=== PATIENT | female | born 1955 | race Caucasian/White ===

== ENCOUNTER 2022-12-18 12:29 | Outpatient (CLI) | payer MEDICARE, SELFPAY ==
[2022-12-18 14:43] LABS: Basophils Absolute Auto 0.04 K/uL (0.00-0.30); Basophils Percent Auto 0.5 % (0.0-3.0); Eosinophils Absolute Auto 0.49 K/uL (0.00-0.50); Eosinophils Percent Auto 6.4 % (0.0-7.0); Hematocrit 45.7 % (33.0-51.0); Hemoglobin* 14.4 gm/dL (12.0-16.0); Lymphocytes Percent Auto 32.9 % (20-44); Mean Corpuscular HGB Conc 32 gm/dL (32-36); Mean Corpuscular Hemoglobin 29 pg (26-34); Mean Corpuscular Volume 91 fL (80-100); Monocytes Percent Auto 8.5 % (0.0-11.0); Neutrophils Absolute Auto 3.93 K/uL (1.7-7.0); Neutrophils Percent Auto 51.7 % (42.0-72.0); Platelet Count* 206 K/uL (140-440); RDW Coefficient of Variation % 12.6 % (11.5-15.5); Red Blood Count 5.02 m/uL (4.00-5.20); White Blood Count* 7.61 K/uL (4.50-11.00)
[2022-12-18 14:53] LABS: Slide Review Reflex No
[2022-12-18 15:17] LABS: Albumin* 3.9 g/dL (3.3-5.0); Chloride* 102 mmol/L (96-114); Potassium* 3.9 mmol/L (3.6-5.1); Sodium* 142 mmol/L (135-149)
[2022-12-18 15:19] LABS: Anion Gap 7 mEq/L (7-15); Bilirubin Total* 0.5 mg/dL (0.1-1.5); Carbon Dioxide* 33 mmol/L (20-32); Creatinine* 0.7 mg/dL (0.5-1.5); Estimated Glomerular Filt Rate 95 ml/min
[2022-12-18 15:20] LABS: Alanine Aminotransferase* 17 U/L (4-35); Alkaline Phosphatase* 114 U/L (40-150); Aspartate Amino Transferase* 26 U/L (12-35); Blood Urea Nitrogen* 13 mg/dL (7-30); Calcium* 9.7 mg/dL (8.4-10.6); Glucose* 129 mg/dL (60-115); Total Protein* 7.4 g/dL (6.0-8.3)
[2022-12-18 16:09] LABS: Vitamin B12* 350 pg/mL (243-894)
== END 2022-12-18 12:30 | disposition home or self-care (01) ==
PROVIDERS: PCP Family Medicine; Visit Provider Family Medicine
DX: E11.9 Type 2 diabetes mellitus without complications (principal); K21.9 Gastro-esophageal reflux disease without esophagitis; R53.83 Other fatigue; E78.5 Hyperlipidemia, unspecified
CPT/HCPCS: 80053; 82607; 85025

== ENCOUNTER 2023-07-15 12:57 | Outpatient (CLI) | payer MEDICARE, SELFPAY ==
--- OUTSIDE RECORDS SUMMARY | 2023-07-15 12:59 | XMS_ITS | Clinical Summary ---
Author Name Unknown Organization [facility] Address [address] [place] [address] Care Team Providers Care Retail Business Analyst Name Role Phone Unavailable Primary Care Provider Unavailabl e Source Comments Patient records contain information from all sites at [facility]. For routine questions regarding patient records, call [phone] during business hours, M-F 8:00 AM - 5:00 PM Central Time. Record requests for emergency care only can be directed to [phone] at any time.[facility] Allergies Active Allergy Reactions Criticality Noted Date Comments House Dust Other (see comments) 08/13/2020 Nasal congestion Milk Headache 08/13/2020 Mold Other (see comments) 08/13/2020 Nasal congestion Onion Headache 08/13/2020 Pollen Extracts Other (see comments) 08/13/2020 Nasal congestion Smallpox Vaccines Other (see comments) 08/14/19 21 Medications Medication Sig Dispensed Refills Start Date End Date Status montelukast (SINGULAIR) 10 mg tablet Take 10 mg by mouth every morning. 0 Active omeprazole (PriLOSEC) [address] capsule Take 20 mg by mouth 2 (two) times a day. 0 Active morphine (MS CONTIN) 30 mg ER tablet 30 mg 3 (three) times a day. 0 08/07/2020 Active albuterol 90 mcg/actuation inhaler Inhale every 6 (six) hours as needed for wheezing. 0 Active busPIRone (BUSPAR) 10 mg tablet Take 10 mg by mouth 2 (two) times a day. 40 mg total at bedtime 0 Active DULoxetine (CYMBALTA) [address] capsule Take 60 mg by mouth 2 (two) times a day. 0 Active meloxicam (MOBIC) 15 mg tablet Take 15 mg by mouth every morning. 0 Active metFORMIN (GLUCOPHAGE) 500 mg tablet Take 500 mg by mouth every morning. 0 Active simvastatin (ZOCOR) 20 mg tablet Take 20 mg by mouth every evening. 0 Active SUMAtriptan (IMITREX) 50 mg tablet Take 50 mg by mouth as needed for migraine. May repeat dose once in 2 hours if migraine unresolved. Do not exceed 200 mg in 24 hours. 0 Active acetaminophen (TYLENOL) 325 mg tablet Take 325 mg by mouth as needed for pain. 0 Active naproxen sodium (ALEVE/ANAPROX) 220 mg tablet Take 220 mg by mouth as needed for pain. 0 Active diphenhydrAMINE (BENADRYL) 50 mg capsule Take 100 mg by mouth at bedtime. Taking 50 mg at bedtime 0 Active cholecalciferol (VITAMIN D3) 50 mcg (2,000 Unit) tablet Take 50 mcg by mouth daily. 0 Active cetirizine (ZyrTEC) 10 mg tablet Take 10 mg by mouth daily. 0 Active pseudoephedrine (SUDAFED) 30 mg tablet Take 60 mg by mouth every 4 (four) hours as needed for congestion. 0 Active UNABLE TO FIND Take 1 each by mouth. viviscal hair vit 0 Active rizatriptan STAFFING ACCOUNT MANAGER (MAXALT-STAFFING ACCOUNT MANAGER) 10 mg disintegrating tablet Dissolve 1 tablet in the mouth as needed. 0 09/06/2021 Active clotrimazole-betameth asone (LOTRISONE) 1-0.05 % cream Apply 1 application topically 2 (two) times a day. 0 08/09/2021 Active amoxicillin (AMOXIL) 500 mg capsule Take 1 capsule by mouth See Admin Instructions. As needed for dental procedures 0 10/22/2021 Active levocetirizine (XYZAL) 5 mg tablet Take 5 mg by mouth every evening. 0 Active hydrOXYzine (ATARAX) 25 mg tablet Take 25 mg by mouth every 6 (six) hours as needed for itching. 0 Active diphenhydramine-lidoc beth 2 %-antacid (mw) Take 5-10 mL by mouth 4 (four) times a day after meals and bedtime. Hold in mouth for 1 minute.Do not eat or drink for 15-30 minutes after use. 100 mL 1 03/27/2023 Active oxyCODONE (ROXICODONE) 5 mg immediate release tabletIndications:Acu te Pain Take 1 tablet (5 mg total) by mouth every 4 (four) hours as needed for pain Indication: Acute Pain. Do not take while on the morphine. 6 tablet 0 05/06/2023 Active diphenhydramine-lidoc beth 2 %-antacid (mw) Take 5-10 mL by mouth 4 (four) times a day after meals and bedtime. Hold in mouth for 1 minute.Do not eat or drink for 15-30 minutes after use. 480 mL 1 05/22/2023 Active Active Problems Problem Noted Date Diagnosed Date Lesion Tongue 03/23/2023 Alcohol Mild Use Disorder (Abuse) In Remission 0 08/08/2022 Diabetes Mellitus Type 2 Hyperglycemia Gastroesophageal Reflux Disease Without Esophagi tis 08/13/2020 Hyperlipidemia 08/13/2020 Overview: Treated with simvastatin daily at . Depression Major 08/13/2020 Anxiety 08/13/2020 Asthma Mild Intermittent With History Of Tobacco Use 08/13/2020 Pain Shoulder Left 06/11/2020 Overview: Added automatically from request for surgery [id number] Encounters Date Type Department Care Team Description 05/22/2023 Orders Only Division of career guidance counselor in [place], [place] [address] [place] [address] Rick Mcneill APRN, C.N.P., D.N.P. 05/06/2023 Orders Only Division of career guidance counselor in [place], [place] [address] [place] [address] Rick Mcneill APRN, C.N.P., D.N.P. 05/06/2023 Clinical Communication Division of career guidance counselor in [place], [place] [address] [place] [address] Rick Mcneill APRN, C.N.P., D.N.P. 04/30/2023 11:00 AM WINDER TENDER - 04/30/2023 1:16 PM [facility] Hospital Encounter Division of career guidance counselor in [place], [place] [address] [place] [address] Rick Mcneill, RAHEL, C.N.P., D.N.P. Lesion Tongue from Last 3 Months Family History Medical History Relation Name Comments Alcohol abuse Father josh beltrán Anxiety disorder Father josh beltrán Coronary artery disease Father josh cormier el Depression Father josh beltrán Hyperlipidemia Father josh beltrán Migraines Father josh beltrán Obesity Father josh beltrán Psychiatric Father josh beltrán Diabetes Maternal Grandfather dorita jones [place] Arthritis Mother tasneem beltrán Clotting disorder Mother tasneem beltrán Osteoporosis Mother tasneem beltrán Transient ischemic attack Mother tasneem ricardo ocjd Breast cancer Mother's Sister ADD Sister singh beltrán pha Relation Name Status Comments Father josh beltrán Maternal Grandfather dorita jones [place] Mother tasneem beltrán Mother's Sister Sister singh beltrán pha Social History Tobacco Use Types Packs/Day Years Used Date Smoking Tobacco: Former Cigarettes 0.3 5 1 - 11/11/2004 Smokeless Tobacco: Never Tobacco Cessation:Counseling Given: Not Answered Alcohol Use Standard Drinks/Week Comments Not Currently 0 (1 standard drink = 0.6 oz pur e alcohol) [facility] Utilities Answer Date Recorded In the past 12 months has [facility] [employer], gas, oil, or water [employer] threatened to shut off services in your home? No 03/26/2023 Humiliation, Afraid, Rape, and Kick questionnair e Answer Date Recorded Within the last year, have y ou been afraid of your partner or ex-partner? No 11/04/2021 Within the last year, have y ou been humiliated or emotionally abused in other ways by your partner or ex-partner? No Within the last year, have y ou been kicked, hit, slapped, or otherwise physically hurt by your partner or ex-partner? No 11/04/2021 Within the last year, have y ou been raped or forced to have any kind of sexual activity by your partner or ex-partner? No 11/04/2021 Social Connection and Isolat ion Panel [NHANES] Answer Date Recorded In a typical week, how many times do you talk on the phone with family, friends, or neighbors? More than three times a week 11/04/2021 How often do you get togethe r with friends or relatives? Once a week 11/04/2021 How often do you attend chur ch or rastafari services? More than 4 times per year 11/04/2021 Do you belong to any clubs o r organizations such as zoroastrianism groups, unions, fraternal or athletic groups, or school groups? Yes 11/04/2021 How often do you attend meet ings of the clubs or organizations you belong to? More than 4 times per year 11/04/2021 Are you , , di vorced, , never , or living with a partner? 11/04/2021 AUDIT-C Answer Date Recorded Q1: How often do you have a drink containing alc ohol? Never 11/04/2021 Average Number of Drinks Not on file 022 Frequency of Binge Drinking Not on file 04/2021 Overall Financial Resource Strain (CARDIA) Answe r Date Recorded How hard is it for you to pa y for the very basics like food, housing, medical care, and heating? Not very hard 11/04/2021 PHQ-2 Answer Date Recorded PHQ-2 Score 2 07/02/2023 [facility] - Occupational Stress Questionnaire Answer Date Recorded Do you feel stress - tense, restless, nervous, or anxious, or unable to sleep at night because your mind is troubled all the time - these days? To some extent 11/04/2021 Exercise Vital Sign Answer Date Recorde d On average, how many days pe r week do you engage in moderate to strenuous exercise (like a brisk walk)? 2 days 03/26/2023 On average, how many minutes do you engage in exercise at this level? 20 min 03/26/2023 Hunger Vital Sign Answer Date Recorded Within the past 12 months, y ou worried that your food would run out before you got the money to buy more. Never true 03/26/20 23 Within the past 12 months, t he food you bought just didn't last and you didn't have money to get more. Never true 03/26/2023 PRAPARE - Transportation Answer Date Re corded In the past 12 months, has l ack of transportation kept you from medical appointments or from getting medications? No 03/07 In the past 12 months, has l ack of transportation kept you from meetings, work, or from getting things needed for daily living? No 03/26/2023 Depression Answer Date Recor ded PHQ-9 Total Score (max 27) 8 07/01 Nutrition Answer Date Recorded Nutrition: EVOO Fat Source Yes 03/26 On average, how many serving s of fruits and vegetables do you eat per day (serving size is equal to 1 cup or approximately the size of a tennis ball)? 3-5 03/26/2023 Dental Answer Date Recorded Dental: Regular Dentist Yes 11/05/19 Employment Answer Date Recorded Employment status Retired 03/26/2023 Housing Stability Answer Date Recorded What is your living situation today? I have a [facility] place to live 03/26/2023 Education Answer Date Recorded What is the highest level of school you have completed or the highest degree you have received? Associate degree: occupational, technical, or vocational program 11/04/2021 Sex and Gender Information Value Date Recorded Sex Assigned at Female 03/26/2023 1:47 PM WINDER TENDER Gender Identity Female 11/04/2021 1:06 PM CDT Sexual Orientation Choose not to disclose 2022 1:47 PM WINDER TENDER Last Filed Vital Signs Vital Sign Reading Time Taken Comments Blood Pressure 136/81 07/02/2023 12:46 PM CDT Pulse 90 07/02/2023 12:46 PM CDT Temperature 36.7 ??C (98.1 ??F) 07/02/2023 12:46 PM C DT Respiratory Rate 20 07/02/2023 12:46 PM CDT Oxygen Saturation 93% 04/30/2023 11:31 AM WINDER TENDER Inhaled Oxygen Concentration - - Weight 101 kg (221 lb 14.3 oz) 07/02/2023 12:46 PM CDT Height 165 cm (5' 4.96) 09/11/2022 1:17 PM CDT Body Mass Index 36.97 09/11/2022 1:17 PM CDT Plan of Treatment Health Maintenance Due Date Last Done Comments Bone Density Scan (Osteoporo sis Screen) 1955 CT Colonography 1955 Cologuard 1955 Colonoscopy 1955 Colorectal Cancer Screening 1955 Diabetic Office Visit with F oot Exam 1955 Dilated Eye Exam 1955 FIT 1955 Hepatitis C Screening 1955 Lipid (Cholesterol) Screening 1955 Urine Albumin 1955 Hepatitis B Vaccines (1 of 3 - Risk 3-dose series) 2015 Zoster Vaccines (2 of 3) 02/06/2016 12/12/2015 Controlled Substance Agreement 01/13/2020 Controlled Substance Monitoring 01/13/2020 Opioid Risk Tool (ORT) 01/13/2020 PEG assessment for Opioid therapy 01/13/2020 Hemoglobin A1C 12/09/2020 06/08/2020 Mammogram 11/09/2021 11/09/2020, 04/0 06/2018, 07/07/2018, Additional history exists Pneumococcal vaccine (65+ ye ars) (2 of 2 - PPSV23 or PCV20) 01/09/2022 11/14/2021 COVID-19 Vaccine (1 - 2022-2 4 season) 2022 Creatinine Level (Kidney Fun ction Test) 12/27/2022 12/27/2021, 06/08/2020 Influenza Vaccine (#1) 2023 04/08/2011 Fall Risk Screen (Annual) 04/06/2023 DTaP,Tdap,and Td Vaccines (2 - Td or Tdap) 08/24/2023 08/23/2013 Depression Monitoring (PHQ-9) 11/01/2023 07/02/2023 Controlled Substance Monitor ing (PHQ-9) 07/01/2024 07/02/2023 Generalized Anxiety (YOSEF-7) 07/01/2024 07/02/2023 Office Visit for Blood Press ure Check / Re-check 07/01/2024 07/02/2023 Glucose Test for Med Monitoring Discontinued 12/27/2021, 08/14/2020, 08/14/2020, Additional history exists Medical Devices Implanted Type Area Irish Moss Operator Device Identifier Shelf Expiration Date Model / Serial / Lot Screw 3.5 Hex Lck 4.75x15 - [id number] 2 Implanted:Qt y: 1 on 08/14/2020 by Joni Mcgill M.D. at [facility] Hardware e.g. pins/screws /rods Left: Shoulder [employer] 08/01/2030 [id number] / / [id number] Screw 3.5 Hex Lck 4.75x30 - [id number] 2 Implanted:Qt y: 1 on 08/14/2020 by Joni Mcgill M.D. at [facility] Hardware e.g. pins/screws /rods Left: Shoulder [employer] 07/23/2030 [id number] / / [id number] Screw 3.5 Hex Lck 4.75x15 - [id number] 2 Implanted:Qt y: 1 on 08/14/2020 by Joni Mcgill M.D. at [facility] Hardware e.g. pins/screws /rods Left: Shoulder [employer] 08/01/2030 [id number] / / [id number] Screw 3.5 Hex Lck 4.75x30 - [id number] 2 Implanted:Qt y: 1 on 08/14/2020 by Joni Mcgill M.D. at [facility] Hardware e.g. pins/screws /rods Left: Shoulder [employer] 07/23/2030 [id number] / / [id number] Scrw Cmp Pthrd 6.5x20 - [id number] 2 Implanted:Qt y: 1 on 08/14/2020 by Joni Mcgill M.D. at [facility] Hardware e.g. pins/screws /rods Left: Shoulder [employer] 04/29/2029 [id number] / / [id number] Bsplt Glnd Cmp 36 - [id number] 2 Implanted:Qt y: 1 on 08/14/2020 by Joni Mcgill M.D. at [facility] Shoulder Implant Left: Shoulder [employer] 05/17/2030 [id number] / / [id number] Bsplt Glnd Cmp Rv Aug Sm - [id number] 2 Implanted:Qt y: 1 on 08/14/2020 by Joni Mcgill M.D. at [facility] Shoulder Implant Left: Shoulder [employer] 07/27/2025 [id number] / / [id number] Hum Tr Cmp Rvrs Std Std - [id number] 2 Implanted:Qt y: 1 on 08/14/2020 by Joni Mcgill M.D. at [facility] Shoulder Implant Left: Shoulder [employer] 07/14/2030 [id number] / / [id number] Hum Brng Cmp Vve Rvrs Std 36 - [id number] 2 Implanted:Qt y: 1 on 08/14/2020 by Joni Mcgill M.D. at [facility] Shoulder Implant Left: Shoulder [employer] 06/28/2025 [id number] / / [id number] Hum Stm Cmp Rvrs Prim Mini 7 - [id number] 2 Implanted:Qt y: 1 on 08/14/2020 by Joni Mcgill M.D. at [facility] Shoulder Implant Left: Shoulder [employer] 05/11/2030 [id number] / / [id number] Procedures Procedure Name Priority Date/Time Associated Diagnosis Comments SURGICAL PATHOLOGY Routine 04/30/2023 11 :33 AM WINDER TENDER Lesion Tongue OMS MISCELLANEOUS LOCAL Routine 04/30/2023 11:00 AM WINDER TENDER Lesion Tongue from Last 3 Months Results * Surgical Pathology (04/30/2023 11:33 AM WINDER TENDER) 05/08/2023 1:40 PM WINDER TENDER DTL Participated in the Interpretation Woody Coffey M.D. -Pathology Resident 05/08/2023 1:40 PM WINDER TENDER DTL Report electronically signed by Jerrod Pimentel M.D. I verify that I have examined all relevant slides/materi als for the specimen(s) and rendered or confirmed the diagnosis. 05/08/2023 1:40 PM WINDER TENDER DTL Gross Description A. Received in formalin labeled with the patient's name, medical record number and designated as left lateral tongue is a 0.9 x 0.5 x 0.2cm portion of lee-pink mucosa with a 0.2 x 0.2 light pink discoloration , which is 0.1 cm to the closest edge. The resection margin is inkedblue, the specimen is bisected, and submitted entirely in A1. Grossed by [facility]99. 05/08/2023 1:40 PM WINDER TENDER DTL Interpretation FINAL DIAGNOSIS A. Left, lateral tongue biopsy: ??Ulcerated squamous mucosa with mild epithelial atypia, favor reactive changes. A special stain for GMS is negative for fungal organisms. 05/08/2023 1:40 PM WINDER TENDER DTL Tissue 04/30/2023 11:3 3 AM WINDER TENDER 04/30/2023 12:04 PM WINDER TENDER Maximus James APRNNPacheco, Ruben.N.P. LAB SURG PATH ORDERABLES Performing Organization Address City/State/[facility] Co de Phone Number [facility] [address] [place] [address], [facility] DT [address] [facility] [address] [place] [address] * OMS Miscellaneous local (04/30/2023 11:00 AM WINDER TENDER) Narrative Procedure Note Rick Mcneill APRN, C.NKofi., D.N.P. - 04/30/2023 11:00 AM CST PROCEDURE: Excisional biopsy of a left lateral tongue lesion. SURGEON: Rick Mcneill APRN, C.NPacheco, D.N.P. PELT INSPECTOR: Dinesh Hernandez C.S.T. ANESTHESIA TYPE: Local. PRE-PROCEDURE INFORMATION Left lateral tongue lesion. POST-PROCEDURE INFORMATION Left lateral tongue lesion. PROCEDURE INFORMATION The patient was brought to operating room 702 and was placed on a surgicaltable in a semi-reclined position. She was prepped and draped in thestandard fashion. A procedure pause was performed. The ulcerative lesionwas located to the left lateral tongue. Topical anesthetic gel was thenapplied, and 2% lidocaine with 1:100,000 epinephrine was administeredlocally around the lesion. Once adequately anesthetized, electrocauterywas used to make an ellipse around the lesion. The incision was carried toa depth of about 3 mm, and the lesion was excised in its entirety. Cauterywas used to provide adequate hemostasis. The soft tissues were thenreapproximated using 4-0 chromic gut suture in a horizontal mattressfashion. The specimen was sent for permanent histopathologic analysis.Written and verbal postoperative instructions were provided. The patientwas discharged from the procedure room in stable condition, havingtolerated the procedure without difficulty. SPECIMENS: Left lateral tongue lesion, post-excisional size approximately 1 cm x 0.8cm in size. ESTIMATED BLOOD LOSS: Minimal. Rick Mcneill APRN, C.N.P., D.N.P. CT CT Job ID: [id number]/ryder Anthony Allen M.D., ValSPaolo PROCEDURE/M INOR SURGICAL ORDERABLES from Last 3 Months Advance Directives For more information, please contact: [phone] Documents on File Type Date Recorded Patient Boxing Promoter Expl anation Advance Directives 06/25/2021 3:45 PM Festusghazal Ariza onClani Rhodes HCPOA/ADVOCATE/AGENT/ PROFESSOR OF MANAGEMENT/SURROG ATE Advance Directives 08/14/2020 7:55 AM POA for health care Healthcare Agents on File Name Relationship Healthcare Agent Relationshi p Communication Festus Arguello Son Health Care Agent Billie Rhodes Daughter Health Care Agent
--- OUTSIDE RECORDS SUMMARY | 2023-07-15 12:59 | XMS_ITS | Encounter Summary ---
Author Name Unknown Organization [facility] Address [address] [place] [address] Care Team Providers Care Rn Peritoneal Dialysis Name Role Phone Unavailable Primary Care Provider Unavailabl e Encounter Details Date Type Department Care Team (Latest Contact Info) Description 05/06/2023 Clinical Communication Division of system auditor in [place], [place] [address] [place] [address] Rick Mcneill, RAHEL, C.N.P., D.N.P. [address] [place] [id number] Social History Tobacco Use Types Packs/Day Years Used Date Smoking Tobacco: Former Cigarettes 0.3 5 1 - 11/11/2004 Smokeless Tobacco: Never Alcohol Use Standard Drinks/Week Comments Not Currently 0 (1 standard drink = 0.6 oz pur e alcohol) [facility] Utilities Answer Date Recorded In the past 12 months has [facility] [employer], gas, oil, or water [employer] threatened to shut off services in your [...] 11/04/2021 How often do you attend chur or latter day services? More than 4 times per year 11/04/2021 Do you belong to any clubs o r organizations such as episcopalian groups, unions, fraternal or athletic groups, or [...] 11/04/2021 PHQ-2 Answer Date Recorded PHQ-2 Score 1 03/26/2023 [facility] - Occupational Stress [...] Recor ded PHQ-9 Total Score (max 27) 3 03/26 Nutrition Answer Date Recorded Nutrition: EVOO Fat [...] your living situation today? I have a [facility] place to live 03/26/2023 Education Answer Date Recorded What is the highest level of school you have completed or the highest degree you have received? Associate degree: occupational, technical, or vocational program 11/04/2021 Sex and Gender Information Value Date Recorded Sex Assigned at Female 03/26/2023 1:47 PM NETWORK SUPPORT ENGINEER Gender Identity Female 11/04/2021 1:06 PM CDT Sexual Orientation Choose not to disclose 2022 1:47 PM NETWORK SUPPORT ENGINEER documented as of this encounter Miscellaneous Notes * Telephone Encounter - Rick Mcneill APRN, C.N.P., D.N.P. - 05/22/2023 12:51 PM CST Returned phone call to patient. She states she is still having 6/10 pain at the left tongue biopsy site. States this has slightly improved over time. She wonders if the tongue is rubbing on a nearby tooth which is causing delayed healing. I discussed with her that we need to allow for more healing time. I suggested using Magic mouthwash for symptom control which she is amenable to trying. This has been sent to her preferred pharmacy. She should also continue with saltwater rinses. She should reach out to our service in 1-2 weeks if pain persists. We can consider clinic evaluation at that timeas needed. Ms Arguello was thankful for the phone call today. She is in agreement with the plan pres ented to her. ORK SUPPORT ENGINEER * Telephone Encounter - Rick Mcneill APRN C.N.PPaolo, D.N.P. - 05/06/2023 4:14 PM CST Returned phone call today. Pain medications have been provided with instructions for use. Side effects were discussed. Discussed with the patient that pain is expected at this timeframe. She was thankful for the return phone call today. ORK SUPPORT ENGINEER * Telephone Encounter - Nivia Coombs - 05/06/2023 3:56 PM CST The patient had a biopsy on 04/30. She is calling as she is experiencing pain at the biopsy site. She rates her pain as a 9-9.5 out of 10. She has not noticed any swelling, bleeding, or discharge. She has been taking Tylenol/Ibuprofen/Aleve. She would appreciate a call back at [phone] to discuss this further. ORK SUPPORT ENGINEER documented in this encounter Plan of Treatment Not on file documented as of this encounter Visit Diagnoses Not on filedocumented in this encounter Additional Health Concerns Assessment Noted Time PHQ-9 Depression Total Score: 3 03/26/20 23 1:45 PM NETWORK SUPPORT ENGINEER documented as of this encounter
--- OUTSIDE RECORDS SUMMARY | 2023-07-15 12:59 | XMS_ITS | Referral Summary ---
Author Name Unknown Organization [facility] Address [address] [place] [address] Care Team Providers Care Automatic Driller And Reamer Name Role Phone Unavailable Primary Care Provider Unavailabl e Source Comments Patient records contain information from all sites at [facility]. For routine questions regarding patient records, call [phone] during business hours, M-F 8:00 AM - 5:00 PM Central Time. Record requests for emergency care only can be directed to [phone] at any time.[facility] Encounters Date Type Department Care Team Description 05/22/2023 Orders Only Division of pay per click strategist in [place], [place] [address] [place] [address] Rick Mcneill APRN, C.N.P., D.N.P. 05/06/2023 Orders Only Division of pay per click strategist in [place], [place] [address] [place] [address] Rick Mcneill APRN, C.N.P., D.N.P. 05/06/2023 Clinical Communication Division of pay per click strategist in [place], [place] [address] [place] [address] Rick Mcneill APRN, C.N.P., D.N.P. 04/30/2023 11:[address] MAINTENANCE WORKER - 04/30/2023 1:[address] MAINTENANCE WORKER Hospital Encounter Division of pay per click strategist in [place], [place] [address] [place] [address] Rick Mcneill APRN, C.N.P., D.N.P. Lesion Tongue from Last 3 Months Allergies Active Allergy Reactions Criticality Noted Date [...] mouth. viviscal hair vit 0 Active rizatriptan SEAT NAILER (MAXALT-SEAT NAILER) 10 mg disintegrating tablet Dissolve 1 tablet [...] Overview: Added automatically from request for surgery [id number] Social History Tobacco Use Types Packs/Day Years Used Date Smoking Tobacco: Former Cigarettes 0.3 5 1 - 11/11/2004 Smokeless Tobacco: Never Tobacco Cessation:Counseling Given: Not Answered Alcohol Use Standard Drinks/Week Comments Not Currently 0 (1 standard drink = 0.6 oz pur e alcohol) [facility] [place] [facility] Answer Date Recorded In the past 12 months has e [employer], gas, oil, or water [employer] threatened to shut off services in your [...] often do you attend chur ch or baptist services? More than 4 times per year 11/04/2021 Do you belong to any clubs o r organizations such as temple groups, unions, fraternal or athletic groups, or [...] Frequency of Binge Drinking Not on file 0804/2021 Overall Financial Resource Strain (CARDIA) Answe r Date Recorded How hard is it for you to pa y for the very basics like food, housing, medical care, and heating? Not very hard 11/04/2021 PHQ-2 Answer Date Recorded PHQ-2 Score 2 07/02/2023 [facility] - Occupational Stress Questionnaire Answer Date Recorded [...] your living situation today? I have a [facility] place to live 03/26/2023 Education Answer Date Recorded What is the highest level of school you have completed or the highest degree you have received? Associate degree: occupational, technical, or vocational program 11/04/2021 Sex and Gender Information Value Date Recorded Sex Assigned at Female 03/26/2023 1:[address] MAINTENANCE WORKER Gender Identity Female 11/04/2021 1:06 PM CDT Sexual Orientation Choose not to disclose 2022 1:[address] MAINTENANCE WORKER Last Filed Vital Signs Vital Sign Reading Time Taken Comments Blood Pressure 136/81 07/02/2023 12:46 PM CDT Pulse 90 07/02/2023 12:46 PM CDT Temperature 36.7 ??C (98.1 ??F) 07/02/2023 12:46 PM C DT Respiratory Rate 20 07/02/2023 12:46 PM CDT Oxygen Saturation 93% 04/30/2023 11:[address] MAINTENANCE WORKER Inhaled Oxygen Concentration - - Weight 101 kg (221 lb 14.3 oz) 07/02/2023 12:46 PM CDT Height 165 cm (5' 4.96) 09/11/2022 1:17 PM CDT Body Mass Index 36.97 09/11/2022 1:17 PM CDT Plan of Treatment Not on file Medical Devices Implanted Type Area Aix Administrator Device Identifier Shelf Expiration Date Model / Serial / Lot Screw 3.5 Hex Lck 4.75x15 - [id number] 2 Implanted:Qt y: 1 on 08/14/2020 by Joni Mcgill M.D. at [facility] Hardware e.g. pins/screws /rods Left: Shoulder [employer] 08/01/2030 [id number] / / [id number] Screw 3.5 Hex Lck 4.75x30 - [id number] 2 Implanted:Qt y: 1 on 08/14/2020 by Joni Mcgill M.D. at [facility] Hardware e.g. pins/screws /rods Left: Shoulder [employer] 07/23/2030 [id number] / / [id number] Screw 3.5 Hex Lck 4.75x15 - [id number] 2 Implanted:Qt y: 1 on 08/14/2020 by Joni Mcgill M.D. at [facility] Hardware e.g. pins/screws /rods Left: Shoulder [employer] 08/01/2030 [id number] / / [id number] Screw 3.5 Hex Lck 4.75x30 - [id number] 2 Implanted:Qt y: 1 on 08/14/2020 by Joni Mcgill M.D. at [facility] Hardware e.g. pins/screws /rods Left: Shoulder [employer] 07/23/2030 [id number] / / [id number] Scrw Cmp Pthrd 6.5x20 - [id number] 2 Implanted:Qt y: 1 on 08/14/2020 by Joni Mcgill M.D. at [facility] Hardware e.g. pins/screws /rods Left: Shoulder [employer] 04/29/2029 [id number] / / [id number] Bsplt Glnd Cmp 36 - [id number] 2 Implanted:Qt y: 1 on 08/14/2020 by Join Mcgill M.D. at [facility] Shoulder Implant Left: Shoulder [employer] 05/17/2030 [id number] / / [id number] Bsplt Glnd Cmp Rv Aug Sm - [id number] 2 Implanted:Qt y: 1 on 08/14/2020 by Joni Mcgill M.D. at [facility] Shoulder Implant Left: Shoulder [employer] 07/27/2025 [id number] / / [id number] Hum Tr Cmp Rvrs Std Std - [id number] 2 Implanted:Qt y: 1 on 08/14/2020 by Joni Mcgill M.D. at [facility] Shoulder Implant Left: Shoulder [employer] 07/14/2030 [id number] / / [id number] Hum Brng Cmp Vve Rvrs Std 36 - [id number] 2 Implanted:Qt y: 1 on 08/14/2020 by Joni Mcgill M.D. at [facility] Shoulder Implant Left: Shoulder [employer] 06/28/2025 [id number] / / [id number] Rust Cmp Rvrs Prim Mini 7 - [id number] 2 Implanted:Qt y: 1 on 08/14/2020 by Joni Mcgill M.D. at [facility] Shoulder Implant Left: Shoulder [employer] 05/11/2030 [id number] / / [id number] Procedures Procedure Name Priority Date/Time Associated Diagnosis Comments SURGICAL PATHOLOGY Routine 04/30/2023 11 :[address] MAINTENANCE WORKER Lesion Tongue OMS MISCELLANEOUS LOCAL Routine 04/30/2023 11:[address] MAINTENANCE WORKER Lesion Tongue from Last 3 Months Results * Surgical Pathology (04/30/2023 11:[address] MAINTENANCE WORKER) 05/08/2023 1:[address] MAINTENANCE WORKER DTL Participated in the Interpretation Woody Coffey M.D. -Pathology Resident 05/08/2023 1:[address] MAINTENANCE WORKER DTL Report electronically signed by Jerrod Pimentel M.D. I verify that I have examined all relevant slides/materi als for the specimen(s) and rendered or confirmed the diagnosis. 05/08/2023 1:[address] MAINTENANCE WORKER DTL Gross Description A. Received in formalin [...] and submitted entirely in A1. Grossed by [email or web address]. 05/08/2023 1:[address] MAINTENANCE WORKER DTL Interpretation FINAL DIAGNOSIS A. Left, lateral tongue biopsy: ??Ulcerated squamous mucosa with mild epithelial atypia, favor reactive changes. A special stain for GMS is negative for fungal organisms. 05/08/2023 1:[address] MAINTENANCE WORKER DTL Tissue 04/30/2023 11:[address] MAINTENANCE WORKER 04/30/2023 12:[address] MAINTENANCE WORKER Rick Mcneill APRN, C.N.P., DelvinNPaoloP. LAB SURG PATH ORDERABLES [facility] [address] [place] [address], [facility] [address] [facility] [address] [place] [address] * OMS Miscellaneous local (04/30/2023 11:[address] MAINTENANCE WORKER) Narrative Procedure Note Rick Mcneill APRN, C.N.P., DelvinN.P. - 04/30/2023 11:00 AM CST PROCEDURE: Excisional biopsy of a left lateral tongue lesion. SURGEON: Rick Mcneill APRN, C.N.P., DelvinNPaoloP. AERIAL TRAM OPERATOR: Dinesh Hernandez C.S.T. ANESTHESIA TYPE: Local. PRE-PROCEDURE [...] APRN, C.N.P., D.N.P. CT CT Job ID: [id number]/ryder Anthony Allen M.D., D.D.S. PROCEDURE/M INOR SURGICAL ORDERABLES from Last 3 Months Advance Directives For more information, please contact: [phone] Documents on File Type Date Recorded Patient Skid Strapper Expl anation Advance Directives 06/25/2021 3:45 PM Festus Ariza onClani Rhodes HCPOA/ADVOCATE/AGENT/ GENERAL HELPER/SURROG ATE Advance Directives 08/14/2020 7:55 AM POA for health care Healthcare Agents on File Name Relationship Healthcare Agent Relationshi p Communication Festus Arguello Son Health Care Agent Billie Rhodes Daughter Health Care Agent
--- OUTSIDE RECORDS SUMMARY | 2023-07-15 12:59 | XMS_ITS ---
Author Name Unknown Organization [facility] Address [address] [place] [address] Care Team Providers Care Physician Practice Consultant Name Role Phone Unavailable Unavailable Unavailable Surgery Details Not on file Complications Check Surgery Details section. Procedure Estimated Blood Loss Check Surgery Details section. Procedure Findings Check Surgery Details section. Procedure Specimens Taken Check Surgery Details section.
--- OUTSIDE RECORDS SUMMARY | 2023-07-15 12:59 | XMS_ITS | Encounter Summary ---
Author Name Unknown Organization [facility] Address [address] [place] [address] Care Team Providers Care Block Paver Name Role Phone Unavailable Primary Care Provider Unavailabl e Encounter Details Date Type Department Care Team (Late st Contact Info) Description 05/22/2023 Orders Only Division of molder bench in [place], [place] [address] [place] [phone] Rick Mcneill, RAHEL, C.N.P., D.N.P. [address] [place] [phone] Social History Tobacco Use Types Packs/Day Years Used Date Smoking Tobacco: Former Cigarettes 0.3 5 1 - 11/11/2004 Smokeless Tobacco: Never Alcohol Use Standard Drinks/Week Comments Not Currently 0 (1 standard drink = 0.6 oz pur e alcohol) [facility] Utilities Answer Date Recorded In the past 12 months has e [employer], gas, oil, or water [employer] threatened to shut off services in your [...] often do you attend chur ch or jewish services? More than 4 times per year 11/04/2021 Do you belong to any clubs o r organizations such as buddhism groups, unions, fraternal or athletic groups, or [...] Answer Date Recorded PHQ-2 Score 1 03/26/2023 [facility] - Occupational [...] money to buy more. Never true 03/26/20 Within the past 12 months, t he [...] your living situation today? I have a [facility] place to live 03/26/2023 Education Answer Date Recorded What is the highest level of school you have completed or the highest degree you have received? Associate degree: occupational, technical, or vocational program 11/04/2021 Sex and Gender Information Value Date Recorded Sex Assigned at Female 03/26/2023 1:47 PM [employer]DEL ARTISTS' Gender Identity Female 11/04/2021 1:06 PM CDT Sexual Orientation Choose not to disclose 2022 1:47 PM MODEL ARTISTS' documented as of this encounter Plan of Treatment Not on file documented as of this encounter Visit Diagnoses Not on filedocumented in this encounter Additional Health Concerns Assessment Noted Time PHQ-9 Depression Total Score: 3 03/26/20 1:45 PM MODEL ARTISTS' documented as of this encounter
--- OUTSIDE RECORDS SUMMARY | 2023-07-15 12:59 | XMS_ITS | Encounter Summary ---
Author Name Unknown Organization [facility] Address [address] [place] [address] Care Team Providers Care Mail Handler Sorter Name Role Phone Unavailable Primary Care Provider Unavailabl e Encounter Details Date Type Department Care Team (Late st Contact Info) Description 05/06/2023 Orders Only Division of fur dyer in [place], [place] [address] [place] [phone] Rick Mcneill, RAHEL, C.N.P., D.N.P. [address] [place] [phone] Social History Tobacco Use Types Packs/Day Years Used Date Smoking Tobacco: Former Cigarettes 0.3 5 1 - 11/11/2004 Smokeless Tobacco: Never Alcohol Use Standard Drinks/Week Comments Not Currently 0 (1 standard drink = 0.6 oz pur e alcohol) [facility] Utilities Answer Date Recorded In the past 12 months has e [employer], gas, oil, or water [employer] threatened to shut off services in your [...] often do you attend chur ch or scientology services? More than 4 times per year [...] Answer Date Recorded PHQ-2 Score 1 03/26/2023 [facility] - [...] your living situation today? I have a [facility] place to live 03/26/2023 Education Answer Date Recorded What is the highest level of school you have completed or the highest degree you have received? Associate degree: occupational, technical, or vocational program 11/04/2021 Sex and Gender Information Value Date Recorded Sex Assigned at Female 03/26/2023 1:47 PM CASING COOKER Gender Identity Female 11/04/2021 1:06 PM CDT Sexual Orientation Choose not to disclose 2022 1:47 PM CASING COOKER documented as of this encounter Plan of Treatment Not on file documented as of this encounter Visit Diagnoses Not on filedocumented in this encounter Additional Health Concerns Assessment Noted Time PHQ-9 Depression Total Score: 3 03/26/20 1:45 PM CASING COOKER documented as of this encounter
--- OUTSIDE RECORDS SUMMARY | 2023-07-15 13:00 | XMS_ITS | Continuity of Care Document ---
Author Name [facility] Organization [facility] Care Team Providers Care Radiographer Cardiac Catheterization Name Role Phone [facility] Unavailable Unavailable Problems Combined list of problems from Department of Defense and Veterans Affairs facilities. It does not include entries that were removed or entered in error. Problem Status Onset Date Problem Type Date of Resolution Comments Source Acquired plantar keratoderma Active Condition [facility] Acquired plantar keratoderma (SNOMED CT 413776278) Active Condition [facility] Allergic conjunctivitis Active Condition [facility] Anxiety Disorder NOS * (ICD-9-CM 300.00) Active Condition [facility] Asthma Active Condition [facility] Asthma - currently dormant Active Condition [facility] Breast screening mammography offered Active Condition Jun 26, 2017 Entered By: PUNEET BLAIR Comment: 06/2017: normal,repeat annually [facility] Cataract Active Condition [facility] Chronic pain Active Condition [facility] Colonoscopy normal Active Condition D ec 2015 Entered By: PUNEET BLAIR Comment: 2005, declined additional colorectal screening [facility] Common migraine Active Condition [facility] Depression Active Condition [facility] Depression (SNOMED CT 28778104) Active Condition [facility] Diabetes mellitus Active Condition [facility] DM - Diabetes mellitus Active Condition [facility] Gastro-esophageal reflux disease Active Condition [facility] Gastroesophageal reflux disease (SNOMED CT 866333990) Active Condition [facility] Glaucoma suspect Active Condition [facility] - Hyperlipidemia Active Condition [facility] Hyperlipidemia (SNOMED CT 12442748) Active Condition [facility] Hypertension Active Condition [facility] Hypertension (SNOMED CT 22516262) Active Condition 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 Migraine variant with headache (SNOMED CT 405536869) Active Condition Jan 10, 2010 Entered By: PUNEET BLAIR Comment: MRI 07/07/[address] [facility] Neuropathic pain Active Condition [facility] Obesity (SNOMED CT 388041262) Active Condition [facility] Osteopenia Active Condition Mar 27, 2 015 Entered By: KENISHA KOCH Comment: 03/20 DEXA hip -1.6, 3y [facility] Osteopenia Active Condition Mar 10, 018 Entered By: KENISHA KOCH Comment: 10/13 DEXA nl, 03/20 DEXA neck -1.4, 05/24 DEXA spine -1.2, neck -1.5, 3y [facility] Pain in limb (ICD-9-CM 729.5) Active Condition [facility] Panic disorder Active Condition [facility] Panic Disorder Active Condition [facility] PERSONAL HISTORY OF SURGERY Active Condition Apr 02, 2010 Entered By: PUNEET BLAIR Comment: choly,tubal,t oe amputations,s kin grafting [facility] Personality disorder Active Condition [facility] Personality disorder (SNOMED CT 24662933) Active Condition [facility] Presbyopia Active Condition [facility] Routine gynecologic examination done Active Condition Mar 10, 201 8 Entered By: KENISHA KOCH Comment: (macrosomia), '00 menopause, HT-start ', 'Nohemi', 01/20 TSH nlNov 2016 Entered By: KENISHA KOCH Comment: '06 colonoscopy [facility], '16 ANNUAL FITOct 2011 Entered By: KENISHA KOCH Comment: '84 BTL, '97 hypothermia-l ost forefeet & tip 1st R fingerOct 2012 Entered By: KENISHA KOCH Comment: hx smoker since 18, 1 ppd; quit '11Dec 2017 Entered By: KENISHA KOCH Comment: 02/20 Pap/HPV neg, dc Pap, 02/[address] [facility] Seizure Disorder Active Condition [facility] Ulcer of foot (SNOMED CT 76386178) Active Condition [facility] Vitamin D deficiency Active Condition Mar 27, 2015 Entered By: KENISHA KOCH Comment: 03/19 dx'd, Vit D , 1999U, 03/20 20 weekly, 5000UDec 2017 Entered By: KENISHA KOCH Comment: 08/19 21, , 03/22 22, 03/23 [facility] Nicotine Dependence (ICD-9-CM 305.1) Inactive Condition 01/28/2013 [facility] Diagnosis: ICD-10-CM Z00.01 Encounter for general adult medical exam w abnormal findings Active Diagnosis [facility] Diagnosis: ICD-10-CM F33.9 Major depressive disorder, recurrent, unspecified Active Diagnosis [facility] Diagnosis: ICD-10-CM R78.89 Finding of oth substances, not normally found in blood Active Diagnosis [facility] Diagnosis: ICD-10-CM Z00.00 Encntr for general adult medical exam w/o abnormal findings Active Diagnosis [facility] Medications Combined list of outpatient medications from Department of Defense and Veterans Affairs facilities.Medications provided include 1) outpatient medications from the last 15 months, and 2) patient-reported medications. Medication Details Route Status Patient Instructions Prescription Expires Prescription Number Last Dispense Date Ordering Provider Order Date Source ACETAMINOPH EN TAB TAKE BY MOUTH PRN ORAL ACTIVE Shanon BLAIR 2010 [facility] ACETAMINOPH EN TAB TAKE BY MOUTH PRN ORALLY ACTIVE Yamini JO 2019 [facility] BUSPIRONE HCL 10MG TAB TAKE TWO TABLETS BY MOUTH TWICE A DAY FOR ANXIETY ORALLY ACTIVE 04/14/2024 [id number] Lizzette CASTELLANOS 2023 [facility] BUSPIRONE HCL 10MG TAB TAKE TWO TABLETS BY MOUTH TWICE A DAY FOR ANXIETY ORALLY DISCONT INUED 05/01/2023 [id number] 3 Lizzette CASTELLANOS 2022 [facility] CHOLECALCIF WADE 25MCG (1,000UNIT) TAB TAKE TWO TABLETS BY MOUTH EVERY DAY ORALLY ACTIVE Yamini JO 2019 [facility] CHOLECALCIF WADE 50MCG (2,000UNIT) TAB TAKE ONE TABLET BY MOUTH DAILY ORAL ACTIVE ABBIE GOLDSTEIN 2016 [facility] DIPHENHYDRA MINE HCL 50MG CAP TAKE 1 CAPSULE BY MOUTH PRN ORAL ACTIVE BLAIR,B ASIL 2011 [facility] DULOXETINE HCL 60MG CAP,EC TAKE ONE CAPSULE BY MOUTH TWICE A DAY FOR MOOD, FOR ANXIETY ORALLY ACTIVE 04/14/2024 [id number] 4 Lizzette CASTELLANOS 2023 [facility] DULOXETINE HCL 60MG CAP,EC TAKE ONE CAPSULE BY MOUTH TWICE A DAY FOR MOOD, FOR ANXIETY ORALLY DISCONT INUED 05/01/2023 [id number] 3 Lizzette CASTELLANOS 2022 [facility] HYDROXYZINE HCL 10MG TAB TAKE ONE TABLET BY MOUTH THREE TIMES A DAY NEEDED FOR ITCHING ORALLY ACTIVE 04/01/2024 [id number] Yamini JO 2022 [facility] MONTELUKAST NA 10MG TAB TAKE ONE TABLET BY MOUTH EVERY MORNING ORALLY ACTIVE 05/29/2024 [id number] 4 Yamini JO 2023 [facility] MONTELUKAST NA 10MG TAB TAKE ONE TABLET BY MOUTH EVERY MORNING ORALLY DISCONT INUED 04/07/2023 [id number] 3 Yamini JO 2022 [facility] MORPHINE SO4 30MG CAP,SA TAKE 1 CAPSULE BY MOUTH THREE TIMES A DAY ORALLY ACTIVE Yamini JO 2019 [facility] MORPHINE SO4 30MG TAB,SA TAKE ONE TABLET BY MOUTH THREE TIMES A DAY ORAL ACTIVE BLAIR,B ASIL 2016 [facility] NAPROXEN TAB TAKE BY MOUTH PRN ORAL ACTIVE BLAIR,B ASIL 2010 [facility] NAPROXEN TAB TAKE PRN ACTIVE Yamini JO 2019 [facility] OMEPRAZOLE 20MG CAP,EC TAKE TWO CAPSULES BY MOUTH EVERY DAY TO DECREASE STOMACH ACID -TAKE ON AN EMPTY STOMACH, AT LEAST 30 MINUTES BEFORE EATING ORALLY ACTIVE 07/01/2024 [id number] 4 Yamini JO 2023 [facility] OMEPRAZOLE 20MG CAP,EC TAKE TWO CAPSULES BY MOUTH EVERY DAY TO DECREASE STOMACH ACID -TAKE ON AN EMPTY STOMACH, AT LEAST 30 MINUTES BEFORE EATING ORALLY DISCONT INUED 07/17/2023 [id number] 4 Yamini JO 2022 [facility] PSEUDOEPHED RINE HCL 30MG TAB TAKE ONE TABLET BY MOUTH ORALLY ACTIVE Yamini JO 2019 [facility] PSEUDOEPHED RINE HCL 60MG TAB TAKE ONE-HALF TABLET BY MOUTH ORAL ACTIVE Shanon BLAIR ASIL 2011 [facility] TRAZODONE HCL 100MG TAB TAKE ONE TABLET BY MOUTH AT BEDTIME AND TAKE ONE TABLET AT BEDTIME NEEDED FOR SLEEP IF NOT ASLEEP IN 1 HOUR ORALLY 05/01/2023 [id number] 3 Lizzette CASTELLANOS 2022 [facility] ZIPRASIDONE HCL 80MG CAP TAKE ONE CAPSULE BY MOUTH TWICE A DAY TAKE WITH FOOD FOR MOOD, FOR MOOD STABILIZ ATION ORALLY 05/01/2023 [id number] 3 Lizzette CASTELLANOS 2022 [facility] Allergies, Adverse Reactions, Alerts Combined list of allergies from Department of Defense and Veterans Affairs facilities. It does not include entries that were removed or entered in error. Substance Category Reaction Severity Reaction type Status Date Reported Comments Source MILK Propensity to adverse reactions to substance (finding) active 0 [facility] ONIONS Propensity to adverse reactions to substance (finding) active 0 [facility] SMALLPOX VACCINE Propensity to adverse reactions to drug (finding) active 0 [facility] Immunizations Combined list of available immunizations from the Department of Defense and Veterans Affairs facilities. Immunization Series Date Given Administered By Site Reaction Lot Number CVX Code Drug Color Finisher Status Comments Source PNEUMOCOCCAL CONJUGATE PCV 13 2021 133 complet ed [facility] INFLUENZA, INJECTABLE, QUADRIVALENT, PRESERVATIVE FREE [address] [facility] ZOSTER LIVE 2015 121 complet ed [facility] ZOSTER LIVE [address] [facility] INFLUENZA, UNSPECIFIED FORMULATION [address] [facility] PNEUMOCOCCAL POLYSACCHARID E PPV23 2013 33 complet ed [id number], 8-21-15, [employer] [facility] TDAP 2013 115 complet ed [facility] INFLUENZA, UNSPECIFIED FORMULATION [address] [facility] TDAP 2011 115 complet ed [employer] Lot. [id number] Exp. 02/11/14 [facility] INFLUENZA, SEASONAL, INJECTABLE 2011 141 complet ed [facility] INFLUENZA, UNSPECIFIED FORMULATION [address] [facility] TD(ADULT) UNSPECIFIED FORMULATION [address] [facility] Results Combined list of recent chemistry, hematology and other laboratory results from Department of Defense and Veterans Affairs, ranging from 15 months to all on record, depending upon the facility. Order Name Results Value Reference Range Date Interpretation Specimen Comments Source CBC LEUKOCYTES [#/VOLUME] IN BLOOD BY AUTOMATED COUNT 6.86 4.0 - 11.0 05/07 Specimen Type: BLOOD No comment entered. Ordering Provider: ZI JO Report Released Date/Time: Mar 24, 2022 02:46 PM Reporting Lab: [facility] [address] Performing Lab: [facility] [address] [facility] CBC ERYTHROCYTE S [#/VOLUME] IN BLOOD BY AUTOMATED COUNT 5.21 4.0 - 5.4 05/07 Specimen Type: BLOOD No comment entered. Ordering Provider: ZI JO Report Released Date/Time: Mar 24, 2022 02:46 PM Reporting Lab: [facility] [address] Performing Lab: [facility] [address] [facility] CBC HEMOGLOBIN [MASS/VOLUM E] IN BLOOD 15.2 11.5 - 16 05/07 Specimen Type: BLOOD No comment entered. Ordering Provider: ZI JO Report Released Date/Time: Mar 24, 2022 02:46 PM Reporting Lab: [facility] [address] Performing Lab: [facility] [address] [facility] CBC HEMATOCRIT [VOLUME FRACTION] OF BLOOD BY AUTOMATED COUNT 47.6 34.5 - 48 05/07 Specimen Type: BLOOD No comment entered. Ordering Provider: ZI JO Report Released Date/Time: Mar 24, 2022 02:46 PM Reporting Lab: [facility] [address] Performing Lab: [facility] [address] [facility] CBC MCV [ENTITIC VOLUME] BY AUTOMATED COUNT 91.4 80 - 100 05/07 Specimen Type: BLOOD No comment entered. Ordering Provider: ZI JO Report Released Date/Time: Mar 24, 2022 02:46 PM Reporting Lab: [facility] [address] Performing Lab: [facility] [address] [facility] CBC MCH [ENTITIC MASS] BY AUTOMATED COUNT 29.2 27 - 33 05/07 Specimen Type: BLOOD No comment entered. Ordering Provider: ZI JO Report Released Date/Time: Mar 24, 2022 02:46 PM Reporting Lab: [facility] [address] Performing Lab: [facility] [address] [facility] CBC MCHC [MASS/VOLUM E] BY AUTOMATED COUNT 31.9 32.0 - 37.5 05/07 L Specimen Type: BLOOD No comment entered. Ordering Provider: ZI JO Report Released Date/Time: Mar 24, 2022 02:46 PM Reporting Lab: [facility] [address] Performing Lab: [facility] [address] [facility] CBC PLATELETS [#/VOLUME] IN BLOOD BY AUTOMATED COUNT 220 150 - 400 05/07 Specimen Type: BLOOD No comment entered. Ordering Provider: ZI JO Report Released Date/Time: Mar 24, 2022 02:46 PM Reporting Lab: [facility] [address] Performing Lab: [facility] [address] [facility] CBC PLATELET MEAN VOLUME [ENTITIC VOLUME] IN BLOOD BY AUTOMATED COUNT 10.9 7.4 - 10.4 05/07 H Specimen Type: BLOOD No comment entered. Ordering Provider: ZI JO Report Released Date/Time: Mar 24, 2022 02:46 PM Reporting Lab: [facility] [address] Performing Lab: [facility] [address] [facility] CBC NUCLEATED ERYTHROCYTE S/100 LEUKOCYTES [RATIO] IN BLOOD BY AUTOMATED COUNT 0.3 05/07 Specimen Type: BLOOD No comment entered. Ordering Provider: ZI JO Report Released Date/Time: Mar 24, 2022 02:46 PM Reporting Lab: [facility] [address] Performing Lab: [facility] [address] [facility] CBC ERYTHROCYTE DISTRIBUTIO N WIDTH [RATIO] BY AUTOMATED COUNT 12.4 11.5 - 14.5 05/07 Specimen Type: BLOOD No comment entered. Ordering Provider: ZI JO Report Released Date/Time: Mar 24, 2022 02:46 PM Reporting Lab: [facility] [address] Performing Lab: [facility] [address] [facility] COMPREHEN SIVE METABOLIC PANEL+MG CREATININE [MASS/VOLUM E] IN SERUM OR PLASMA 0.8 0.5 - 1.0 05/07 Specimen Type: PLASMA No comment entered. Ordering Provider: ZI OJ Report Released Date/Time: Mar 24, 2022 02:46 PM Reporting Lab: [facility] [address] Performing Lab: [facility] [address] [facility] COMPREHEN SIVE METABOLIC PANEL+MG UREA NITROGEN [MASS/VOLUM E] IN SERUM OR PLASMA 10 7 - 20 05/07 Specimen Type: PLASMA No comment entered. Ordering Provider: ZI JO Report Released Date/Time: Mar 24, 2022 02:46 PM Reporting Lab: [facility] [address] Performing Lab: [facility] [address] [facility] COMPREHEN SIVE METABOLIC PANEL+MG GLUCOSE [MASS/VOLUM E] IN SERUM OR PLASMA 125 70 - 100 05/07 H Specimen Type: PLASMA No comment entered. Ordering Provider: ZI JO Report Released Date/Time: Mar 24, 2022 02:46 PM Reporting Lab: [facility] [address] Performing Lab: [facility] [address] [facility] COMPREHEN SIVE METABOLIC PANEL+MG SODIUM [MOLES/VOLU ME] IN SERUM OR PLASMA 138 136 - 145 05/07 Specimen Type: PLASMA No comment entered. Ordering Provider: ZI JO Report Released Date/Time: Mar 24, 2022 02:46 PM Reporting Lab: [facility] [address] Performing Lab: [facility] [address] [facility] COMPREHEN SIVE METABOLIC PANEL+MG POTASSIUM [MOLES/VOLU ME] IN SERUM OR PLASMA 3.9 3.5 - 5.1 05/07 Specimen Type: PLASMA No comment entered. Ordering Provider: ZI JO Report Released Date/Time: Mar 24, 2022 02:46 PM Reporting Lab: [facility] [address] Performing Lab: [facility] [address] [facility] COMPREHEN SIVE METABOLIC PANEL+MG CHLORIDE [MOLES/VOLU ME] IN SERUM OR PLASMA 101 98 - 107 05/07 Specimen Type: PLASMA No comment entered. Ordering Provider: ZI JO Report Released Date/Time: Mar 24, 2022 02:46 PM Reporting Lab: [facility] [address] Performing Lab: [facility] [address] [facility] COMPREHEN SIVE METABOLIC PANEL+MG CARBON DIOXIDE, TOTAL [MOLES/VOLU ME] IN SERUM OR PLASMA 29 22 - 29 05/07 Specimen Type: PLASMA No comment entered. Ordering Provider: ZI JO Report Released Date/Time: Mar 24, 2022 02:46 PM Reporting Lab: [facility] [address] Performing Lab: [facility] [address] [facility] COMPREHEN SIVE METABOLIC PANEL+MG CALCIUM [MASS/VOLUM E] IN SERUM OR PLASMA 9.4 8.4 - 10.2 05/07 Specimen Type: PLASMA No comment entered. Ordering Provider: ZI JO Report Released Date/Time: Mar 24, 2022 02:46 PM Reporting Lab: [facility] [address] Performing Lab: [facility] [address] [facility] COMPREHEN SIVE METABOLIC PANEL+MG PROTEIN [MASS/VOLUM E] IN SERUM OR PLASMA 7.7 6.0 - 8.3 05/07 Specimen Type: PLASMA No comment entered. Ordering Provider: ZI JO Report Released Date/Time: Mar 24, 2022 02:46 PM Reporting Lab: [facility] [address] Performing Lab: [facility] [address] [facility] COMPREHEN SIVE METABOLIC PANEL+MG ALBUMIN [MASS/VOLUM E] IN SERUM OR PLASMA 3.8 3.5 - 5.2 05/07 Specimen Type: PLASMA No comment entered. Ordering Provider: ZI JO Report Released Date/Time: Mar 24, 2022 02:46 PM Reporting Lab: [facility] [address] Performing Lab: [facility] [address] [facility] COMPREHEN SIVE METABOLIC PANEL+MG BILIRUBIN.T OTAL [MASS/VOLUM E] IN SERUM OR PLASMA 0.4 0.2 - 1.2 05/07 Specimen Type: PLASMA No comment entered. Ordering Provider: IZ JO Report Released Date/Time: Mar 24, 2022 02:46 PM Reporting Lab: [facility] [address] Performing Lab: [facility] [address] [facility] COMPREHEN SIVE METABOLIC PANEL+MG MAGNESIUM [MASS/VOLUM E] IN SERUM OR PLASMA 1.6 1.6 - 2.6 05/07 Specimen Type: PLASMA No comment entered. Ordering Provider: ZI JO Report Released Date/Time: Mar 24, 2022 02:46 PM Reporting Lab: [facility] [address] Performing Lab: [facility] [address] [facility] COMPREHEN SIVE METABOLIC PANEL+MG ANION GAP IN SERUM OR PLASMA 8 5 - 15 05/07 Specimen Type: PLASMA No comment entered. Ordering Provider: ZI JO Report Released Date/Time: Mar 24, 2022 02:46 PM Reporting Lab: [facility] [address] Performing Lab: [facility] [address] [facility] COMPREHEN SIVE METABOLIC PANEL+MG ALKALINE PHOSPHATASE [ENZYMATIC ACTIVITY/VO LUME] IN SERUM OR PLASMA 112 40 - 150 05/07 Specimen Type: PLASMA No comment entered. Ordering Provider: ZI JO Report Released Date/Time: Mar 24, 2022 02:46 PM Reporting Lab: [facility] [address] Performing Lab: [facility] [address] [facility] COMPREHEN SIVE METABOLIC PANEL+MG ALANINE AMINOTRANSF ERASE [ENZYMATIC ACTIVITY/VO LUME] IN SERUM OR PLASMA 11 <55 - 55 05/07 Specimen Type: PLASMA No comment entered. Ordering Provider: ZI JO Report Released Date/Time: Mar 24, 2022 02:46 PM Reporting Lab: [facility] [address] Performing Lab: [facility] [address] [facility] COMPREHEN SIVE METABOLIC PANEL+MG ASPARTATE AMINOTRANSF ERASE [ENZYMATIC ACTIVITY/VO LUME] IN SERUM OR PLASMA 16 <34 - 34 05/07 Specimen Type: PLASMA No comment entered. Ordering Provider: ZI JO Report Released Date/Time: Mar 24, 2022 02:46 PM Reporting Lab: [facility] [address] Performing Lab: [facility] [address] [facility] COMPREHEN SIVE METABOLIC PANEL+MG GLOMERULAR FILTRATION RATE/1.73 SQ M.PREDICTED [VOLUME RATE/AREA] IN SERUM, PLASMA OR BLOOD BY CREATININE- BASED FORMULA (CKD-EPI) 81 60 05/07 Specimen Type: PLASMA No comment entered. Ordering Provider: ZI JO Report Released Date/Time: Mar 24, 2022 02:46 PM Reporting Lab: [facility] [address] Performing Lab: [facility] [address] [facility] HEMOGLOBI N A1C HEMOGLOBIN A1C/HEMOGLO BIN.TOTAL IN BLOOD 5.8 4.0 - 6.0 05/07 Specimen Type: BLOOD Comment: Values obtained from A1C measurements can vary. For typical A1C assays, a reported value of 7.0 could actually be between 6.7 and 7.3 if measured by a reference method. A reported value of 9.0 could actually be between 8.7 and 9.3. Ref: [email or web address] [email or web address]/[email or web address] [email or web address] Ordering Provider: ZI JO Report Released Date/Time: Mar 24, 2022 02:46 PM Reporting Lab: [facility] [address] Performing Lab: [facility] [address] [facility] Vital Signs Combined list of inpatient and outpatient Vital Signs from Department of Defense and Veterans Affairs, ranging from 12 months to all on record, depending upon the facility. Vital Sign Value Date Comments Source SYSTOLIC BLOOD PRESSURE 130 04/01/2023 14:41:39 [facility] DIASTOLIC BLOOD PRESSURE 70 04/01/2023 14:41:39 [facility] PULSE OXIMETRY 93% 04/01/2023 14:41:39 L DAYANA Cro[facility] WEIGHT 219.2 04/01/2023 14:41:39 [facility] BMI 35kg/m2 04/01/2023 14:41:39 [facility] PAIN 0 04/01/2023 14:41:39 [facility] TEMPERATURE 97.7 04/01/2023 14:41:39 [facility] PULSE 68 04/01/2023 14:41:39 [facility] RESPIRATION 20 04/01/2023 14:41:39 [facility] Encounters Combined list of: 1) Encounters from Department of [facility] facilities going back up to thelast 18 months. 2) Encounters from the Department of [facility] facilities going back up to 280 months. Location Location Details Encounter Type Encounter Number Reason For Visit Attending Provider ADM Date DC Date Status Disposition Source [facility] Outpatient Encounter [id number] 03/19 [facility] [place] [facility] Encounter [id number] 03/24 [facility] [place] [facility] Out[place] Encounter [id number] NORMAN JO M 03/24 [facility] Outpatient Encounter [id number] Diagnos is: ICD-10- CM Z00.00 Encntr for general adult medical exam w/o abnorma l finding s
NORMAN JO M 03/24 [facility] OFFICE O/P EST MINIMAL PROB [id number] JESSI RODRIGUEZ S 03/24 [facility] [place] [facility] Out[place] Encounter [id number] 04/28 [place] [facility] [place] [facility] [place] Encounter [id number] 04/29 [facility] ELECTROCAR DIOGRAM TRACING [id number] Diagnos is: ICD-10- CM R78.89 Finding of oth substan alen, not normall y found in blood<b r/> NORMAN JO 05/07 [facility] OFFICE O/P EST MOD 30-39 MIN [id number] Diagnos is: ICD-10- CM F33.9 Major depress emmy disorde r, recurre nt, unspeci fied
HEATHER MUELLER 06/04 [facility] [place] [facility] OFFICE O/P EST MOD 30-39 MIN [id number] Diagnos is: ICD-10- CM F33.9 Major depress emmy disorde r, recurre nt, unspeci fied
HEATHER MUELLER 06/04 [place] [facility] [place] [facility] Outpatient Encounter [id number] HEATHER MUELLER 06/04 [place] [facility] [place] [facility] [place] Encounter [id number] 06/10 [place] [facility] [place] [facility] Out[place] Encounter [id number] 06/17 [place] [facility] [place] [facility] [place] [facility]counter [id number] 07/04 [place] [facility] [place] [facility] [place] [facility]counter [id number] 07/09 [place] [facility] [place] [facility] [place] Encounter [id number] 07/30 [place] [facility] Outpatient Encounter [id number] 10/21 [place] [facility] [place] Outpatient Encounter [id number] NOR[place] JO 02/16 [place] [facility] Outpatient Encounter [id number] 04/01 [facility] [facility] Outpatient Encounter [id number] Diagnos is: ICD-10- CM Z00.01 Encount er for general adult medical exam w abnorma l finding s
NORMAN JO NE M 04/01 [facility] [facility] Outpatient Encounter [id number] 04/27 [facility] Out[facility] Encounter [id number] 05/08 [facility] Outpatient Encounter [id number] 05/11 [place] [facility] Social History Combined list of available smoking, tobacco, and other social history from Department of Defense and Veterans Affairs facilities. Social History Type Response Date Comment Sourc e Tobacco smoking status [facility]-TOBACCO NEVER USED 04/01/2023 [facility] History of tobacco use [place]TO[facility]AC[facility] FORMER USER 03/24/2022 [facility] History of tobacco use [place]-TO[place]ACCO FORMER USER 02/12/2021 [facility] History of tobacco use [place]-TOBACCO QUIT 1 TO < 5 YRS 05/19/2019 [facility] History of tobacco use [place]-TOBACCO QUIT 5 TO < 15 YRS 07/23/2018 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 History of tobacco use FORMER TOBACCO US E >1Y <7Y 10/19/2012 [facility] History of tobacco use FORMER TOBACCO US E >1Y <7Y 12/04/2011 [facility] History of tobacco use CURRENT TOBACCO USER 08/08/2010 [facility] History of tobacco use FORMER TOBACCO US E >1Y <7Y 10/02/2009 [facility] Plan of Care List of future care activities from Department of [facility] Affairs facilities. Additional future care activities may be listed in the Assessment and Plan section. Date/Time Care Activity Care Activity Detail Facili ty 07/24/2023 AMBULATORY - NONE AMBULATORY - NONE [facility] Advance Directives List of completed, amended, or rescinded Advance Directives on record at Department of [facility] facilities. An actual copy of the Directive is not included. Date Advance Directive Provider Source 06/17/2022 ADVANCE DIRECTIVE ASHLY CARDOZO [facility]
--- OUTSIDE RECORDS SUMMARY | 2023-07-15 13:00 | XMS_ITS | Encounter Summary ---
Author Name Unknown Organization [facility] Address [address] [place] [id number] Care Team Providers Care Extension Course Coordinator Name Role Phone Unavailable Primary Care Provider Unavailabl e Encounter Details Date Type Department Care Team (Latest Contact Info) Description 03/27/2023 Clinical Communication Division of manager bench in [place], [place] [address] [place] [phone] Anthony Allen M.D., D.D.S. [address] [place] [phone] Social History Tobacco Use Types Packs/Day Years Used Date Smoking Tobacco: Former Cigarettes 0.3 5 1 - 11/11/2004 Smokeless Tobacco: Never Alcohol Use Standard Drinks/Week Comments Not Currently 0 (1 standard drink = 0.6 oz pur e alcohol) [facility] Utilities Answer Date Recorded In the past 12 months has [employer] gas, oil, or water [employer] threatened to shut off services in your [...] How often do you attend chur or religion services? More than 4 times per year 11/04/2021 Do you belong to any clubs o r organizations such as restorationism groups, unions, fraternal or athletic groups, or [...] Answer Date Recorded PHQ-2 Score 1 03/26/2023 [facility] - Occupational Stress [...] your living situation today? I have a [facility] place to live 03/26/2023 Education Answer Date Recorded What is the highest level of school you have completed or the highest degree you have received? Associate degree: occupational, technical, or vocational program 11/04/2021 Sex and Gender Information Value Date Recorded Sex Assigned at Female 03/26/2023 1:47 PM REMOTE SENSING SCIENTIST Gender Identity Female 11/04/2021 1:06 PM CDT Sexual Orientation Choose not to disclose 2022 1:47 PM REMOTE SENSING SCIENTIST documented as of this encounter Miscellaneous Notes * Telephone Encounter - Lula Rosario APRN, C.N.P., M.S. - 03/27/2023 2:52 PM CST [facility]MS was not original prescriber of this medication. Patient was consulted 1 week ago and will be undergoing biopsy. Medication sent to requested pharmacy. TE SENSING SCIENTIST documented in this encounter Plan of Treatment Not on file documented as of this encounter Visit Diagnoses Not on filedocumented in this encounter Additional Health Concerns Assessment Noted Time PHQ-9 Depression Total Score: 3 03/26/20 23 1:45 PM REMOTE SENSING SCIENTIST documented as of this encounter
--- OUTSIDE RECORDS SUMMARY | 2023-07-15 13:00 | XMS_ITS | Encounter Summary ---
Author Name Unknown Organization [facility] Address [address] [place] [address] Care Team Providers Care Glass Curvature Gauger Name Role Phone Unavailable Primary Care Provider Unavailabl e Reason for Referral * Outpatient (Routine) - Closed Specialty Diagnoses / Procedures Referred By Dayami berger Referred To Contact cable inspector Diagnoses Lesion Tongue Procedures OMS Misrenateaneous local Anthony Allen M.D., D.D.S. [address] [place] [phone] [facility] Referral ID Status Reason Start Date Expiration Date Visits Re quested Visits Authorized [id number] Closed 03/23/2023 03/22/2024 1 1 E STYLIST Reason for Visit * Outpatient (Routine) - Closed Specialty Diagnoses / Procedures Referred By Dayami berger Referred To Contact cable inspector Diagnoses Lesion Tongue Procedures OMS Anthony Fletcher M.D., D.D.S. [address] [place] [phone] [facility] Referral ID Status Reason Start Date Expiration Date Visits Re quested Visits Authorized [id number] Closed 03/23/2023 03/22/2024 1 1 Encounter Details Date Type Department Care Team (Latest Contact Info) Description 04/30/2023 11:00 AM FRAME STYLIST - 04/30/2023 1:16 PM FRAME STYLIST Hospital Encounter Division of cable inspector in [place], [place] [address] [place] [address] Rick Mcneill APRN, C.N.P., D.N.P. [address] [place] [address] Lesion Tongue Social History Tobacco Use Types Packs/Day Years Used Date Smoking Tobacco: Former Cigarettes 0.3 5 1 - 11/11/2004 Smokeless Tobacco: Never Alcohol Use Standard Drinks/Week Comments Not Currently 0 (1 standard drink = 0.6 oz pur e alcohol) [facility] Utilities Answer Date Recorded In the past 12 months has e [employer], gas, oil, or water [employer] threatened to shut off services in your [...] often do you attend chur ch or advent services? More than 4 times per year 11/04/2021 Do you belong to any clubs o r organizations such as alevism groups, unions, fraternal or athletic groups, or [...] Answer Date Recorded PHQ-2 Score 1 03/26/2023 [facility] - Occupational Stress Questionnaire Answer Date Recorded [...] Sex Assigned at Female 03/26/2023 1:47 PM FRAME STYLIST Gender Identity Female 11/04/2021 1:06 PM CDT Sexual Orientation Choose not to disclose 2022 1:47 PM FRAME STYLIST documented as of this encounter Last Filed Vital Signs Vital Sign Reading Time Taken Comments Blood Pressure 168/76 04/30/2023 11:30 AM FRAME STYLIST Pulse 83 04/30/2023 11:31 AM FRAME STYLIST Temperature - - Respiratory Rate - - Oxygen Saturation 93% 04/30/2023 11:31 AM FRAME STYLIST Inhaled Oxygen Concentration - - Weight - - Height - - Body Mass Index - - documented in this encounter Discharge Instructions * Patient Instructions* Parmjit Ayala, C.S.T. - 04/30/2023 11:00 AM FRAME STYLIST Images from the original note were not included. Contact Numbers for cable inspector During weekday hours (usual business hours) [phone] Evening or Weekends [phone] (ask for the Oral Surgeon cardiac rehabilitation specialist) Over the counter medications (Tylenol and Aleve) are the most effective medications to control oralsurgical pain in most instances. Aleve is more potent than Advil or Ibuprofen (3 Aleve = 16 Advil or Ibuprofen tabs) Give the Tylenol and Aleve tablets ON SCHEDULE rather than as needed This will keep these medications at a consistent level in the body, thus helping to control breakthrough pain. Start this schedule as soon as you get home and continue for 3-5 days Tylenol can be taken with an empty stomach. Aleve must be taken with food or milk A small number of patients may be given a prescription for Oxycodone. If this was prescribed, be aware it is a narcotic and is to be used only as needed. Breakfast Aleve (naproxen) 220 mg with food/milk If prescribed, use Oxycodone only as needed to control pain throughout the day and night. Take withfood/milk. Mid-morning Tylenol 1000 mg Lunch Aleve (naproxen) 220 mg with food/milk Mid-afternoon Tylenol 1000 mg Dinner Aleve (naproxen) 220 mg with food/milk Bedtime Tylenol 1000 mg Most patients will need some pain medications for 3 to 5 days after the procedure. At that point the medications can be decreased and then stopped as tolerated Call our practice at any time if you have questions about pain control or problems - we want to make your recovery as comfortable as possible Care the Day of Surgery Use this information to help you recover after tooth removal surgery. Start the day of your surgery. Surgical site To control bleeding and to help a blood clot form, your provider places gauze on the surgical site.You are asked to use firm pressure to bite down on the gauze. Be sure you understand when and how to remove or change the gauze. Talk to a member of your health care team if you have questions. If blood clots dislodge or break away, you may have bleeding that delays healing. Avoid these actions, which can dislodge blood clots: Do not rinse your mouth, spit or brush your teeth on the day of your surgery. Do not use straws for five days after surgery. Do not smoke for at least five days after surgery. Smoking can delay healing and lead to a dry socket. Eating and drinking Eat only soft foods for the first few days. Do not chew near the surgical site. Drink clear liquids to help prevent dehydration. Drink enough liquids, about 1 to 2 liters a day, to keep your urine light yellow. Eat solid foods only when you can comfortably chew them. For two weeks after surgery, do not eat hard or crunchy foods such as popcorn or nuts. They can getstuck in the surgical area. This can lead to infection. Other instructions If you use an orthodontic mouth guard, wear it on the day of your surgery only if it fits. The mouth guard may not fit correctly because of swollen gums at the surgical site. If that happens, wait until the mouth guard fits properly, and then wear it as you have been told. Typically, you can wear the mouth guard within a few days. If your health care provider prescribes an antibiotic medication, take it exactly as you have been told until you finish the medication. You are given an ice pack to apply to your face for the first 24 to 48 hours. Apply it as you have been told. It may help lessen pain and inflammation. Ask your health care provider when you may return to school or work. Find out when you may play sports or exercise again. Managing pain You may have pain in the surgical area as well as in other teeth. The amount of pain is different for each person. Pain is a natural part of the healing process. Your health care team is committed tohelping you safely manage your pain so you can do the things that help you heal. Managing pain does not mean you will feel no pain at all. No medication or activity completely takes away pain. Pain usually gets better as you heal. However, it is more likely to do so when you try to be active. For instance, you can walk, do deep breathing exercises, change positions, or do recommended exercises. Good pain management is a team effort. You and your health care providers work together to manage your pain. Talk with your team. Set up a plan that works for you. Your pain management plan may include: Strategies that may lower your pain without taking medications. These include gentle exercises, applying ice or heat, and relaxation. Thlv-fsd-yutobxb medications. Prescription medications. Together, you and your health care team can set up a plan to safely manage your pain. The goal of pain management is to make you more comfortable. Doing that helps you get the rest you need to do theactivities that can help you heal. Possible Side Effects and Complications After tooth removal surgery, there is a risk for some side effects and problems, called complications. Talk with a member of your care team about this as needed. Infection at the surgical site Be aware of these signs of infection: Temperature of 100.4 degrees Fahrenheit (38 degrees Celsius) or greater. Chills. Increased swelling, tenderness or redness at the site. Increased pain or pain not relieved by pain medications. A bad-smelling odor or new or increased drainage coming from the site. If you have symptoms of dry socket or signs of infection, call your health care team at the number you were given. The number may be different if you call after hours. If you call after business hours, you speak to the resident on duty. Bleeding from the surgical site Some bleeding from the surgical site is normal. Usually it is only enough to make your saliva red. Do not spit out bloody saliva during the first 24 hours after surgery. Swallow it or gently absorb it with a tissue. If you use a tissue, do not touch the surgical site. You could dislodge a blood clot and cause more bleeding. If the bleeding seems to be more than minor oozing, put a piece of folded, moist, clean gauze over the site. The gauze must be moist so it does not stick to the area. Bite down firmly for 20 to 30 minutes without moving the gauze. Then gently pull away the gauze. If bleeding continues, repeat as needed. Instead of gauze, you may put a wet tea bag over the site. Use black tea, not green tea. Bite down firmly for 20 to 30 minutes without moving the tea bag. Then gently pull away the tea bag. If bleeding continues, repeat as needed. Other side effects You may have: Pain in your mouth, jaw or at the site. Swelling and bruising. Nausea, sometimes as a result of anesthesia or sedation, pain medications or antibiotics. To help prevent or lessen nausea, take medications with food or milk. Drink an additional two to three 8-ounce glasses of water a day. Temporary numbness of the teeth, gums, tongue, and chin. If you have numbness that lasts for more than 48 hours, contact your health care provider. A slight fever, usually less than 100.4 degrees Fahrenheit (38 degrees Celsius), for 1 or 2 days after surgery. An earache for a few days. A sore throat for a few days. Dry or cracked corners of the mouth. Use an rqzx-ktb-eisxhrg lip balm. Care on Days 1 to 4 After Surgery Use this information to help with your recovery. Start the day after your tooth removal surgery. Surgical site Keep your mouth clean. This helps the surgical site heal and prevents infection and other complications. To do this: For five days: Rinse your mouth gently with warm salt water at least 3 to 5 times a day, especiallyafter meals and snacks. To make salt water, mix 1/2 teaspoon of salt in an 8-ounce glass of warm orroom-temperature water. [place] your teeth, tongue and the roof of your mouth. Be very gentle when you brush near the surgical area. If you usually use a mouth wash or fluoride mouth rinse, wait seven days after surgery before you use it. Managing pain, swelling and bruising Manage your pain as your health care provider has told you. Use strategies such as gentle exercises, applying ice or heat, and relaxation to manage your pain and any swelling or bruising. Facial swelling and bruising around the jaw or upper neck are normal after surgery. You may notice that you have the most swelling 48 to 72 hours after surgery. Apply cold packs on the outside of your face during the first 24 to 48 hours. Follow the instructions you are given. Doing this may help control pain and swelling. Swelling can make your jaw feel stiff. You may have a hard time opening your mouth all the way for a few days. If your jaw is still sore or stiff after the swelling goes down, gently massage it. Or put a warm, moist towel on the outside of your face for a few minutes. Good pain management is a team effort. You and your health care providers work together to manage your pain. Talk with your team. Set up a plan that works for you. Care Beginning Day 5 After Surgery Starting on the fifth day after surgery, use the following information to help with your recovery. Managing pain It is normal to have pain for several days after your tooth removal. Manage your pain as your health care provider has told you. Use strategies such as gentle exercises, applying ice or heat, and relaxation. Take any pain medication exactly as you are told. Take it only for as long as you need it to manage your discomfort. If you have questions about yourpain control, talk with your health care provider. Good pain management is a team effort. You and your health care providers work together to manage your pain. Stitches Surgeons typically use stitches that dissolve within 3 to 10 days. If different stitches are used, talk to your health care provider about when they should be removed. When to Contact Your Health Care Team Contact a member of your health care team if you experience the following: Any signs of infection: Temperature of 100.4 degrees Fahrenheit (38 degrees Celsius) or greater. Chills. Increased swelling, tenderness or redness at the site. Increased pain or pain not relieved by pain medications. A bad-smelling odor or new or increased drainage coming from the site. Increased pain or pain not relieved by pain medications. Concerns about the amount of bleeding, how long it lasts, or if bleeding is not controlled. Symptoms of dry socket. A rash. Difficulty breathing. Severe or continued vomiting. Looking forward Use the directions in this resource to help you recover from your tooth removal surgery. You are an important member of your health care team. Talk with your health care providers if you have questions about caring for yourself after your surgery. This material is for your education and information only. This content does not replace medical advice, diagnosis or treatment. New medical research may change this information. If you have questionsabout a medical condition, always talk with your health care provider. ?? 2019 [facility] [employer] ([facility]). All rights reserved. [id number] E STYLIST documented in this encounter Medications at Time of Discharge Medication Sig Dispensed Refills Start Date End Date acetaminophen (TYLENOL) 325 mg tablet Take 325 mg by mouth as needed for pain. 0 albuterol 90 mcg/actuation inhaler Inhale every 6 (six) hours as needed for wheezing. 0 amoxicillin (AMOXIL) 500 mg capsule Take 1 capsule by mouth See Admin Instructions. As needed for dental procedures 0 10/22/2021 busPIRone (BUSPAR) 10 mg tablet Take 10 mg by mouth 2 (two) times a day. 40 mg total at bedtime 0 cetirizine (ZyrTEC) 10 mg tablet Take 10 mg by mouth daily. 0 cholecalciferol (VITAMIN D3) 50 mcg (2,000 Unit) tablet Take 50 mcg by mouth daily. 0 clotrimazole-betamethason e (LOTRISONE) 1-0.05 % cream Apply 1 application topically 2 (two) times a day. 0 08/09/2021 diphenhydrAMINE (BENADRYL) 50 mg capsule Take 100 mg by mouth at bedtime. Taking 50 mg at bedtime 0 diphenhydramine-lidocaine 2 %-antacid (mw) Take 5-10 mL by mouth 4 (four) times a day after meals and bedtime. Hold in mouth for 1 minute.Do not eat or drink for 15-30 minutes after use. 100 mL 1 03/27/2023 DULoxetine (CYMBALTA) [address] capsule Take 60 mg by mouth 2 (two) times a day. 0 hydrOXYzine (ATARAX) 25 mg tablet Take 25 mg by mouth every 6 (six) hours as needed for itching. 0 levocetirizine (XYZAL) 5 mg tablet Take 5 mg by mouth every evening. 0 meloxicam (MOBIC) 15 mg tablet Take 15 mg by mouth every morning. 0 metFORMIN (GLUCOPHAGE) 500 mg tablet Take 500 mg by mouth every morning. 0 montelukast (SINGULAIR) 10 mg tablet Take 10 mg by mouth every morning. 0 morphine (MS CONTIN) 30 mg ER tablet 30 mg 3 (three) times a day. 0 08/07/2020 naproxen sodium (ALEVE/ANAPROX) 220 mg tablet Take 220 mg by mouth as needed for pain. 0 omeprazole (PriLOSEC) [address] capsule Take 20 mg by mouth 2 (two) times a day. 0 pseudoephedrine (SUDAFED) 30 mg tablet Take 60 mg by mouth every 4 (four) hours as needed for congestion. 0 rizatriptan INDIGO MIXER (MAXALT-INDIGO MIXER) 10 mg disintegrating tablet Dissolve 1 tablet in the mouth as needed. 0 09/06/2021 simvastatin (ZOCOR) 20 mg tablet Take 20 mg by mouth every evening. 0 SUMAtriptan (IMITREX) 50 mg tablet Take 50 mg by mouth as needed for migraine. May repeat dose once in 2 hours if migraine unresolved. Do not exceed 200 mg in 24 hours. 0 UNABLE TO FIND Take 1 each by mouth. viviscal hair vit 0 documented as of this encounter Progress Notes * Rick Mcneill APRN, C.N.P., D.N.P. - 04/30/2023 11:00 AM CST The patient was seen at [facility]. Any pertinent previous documentation was reviewed, updated if appropriate, and the patient agreed to proceed with surgery today. We will proceed with biopsy of left lateral tongue ulcerative lesion. E STYLIST documented in this encounter Procedure Notes * Rick Mcneill APRN, C.NPaoloPPaolo, DelvinN.P. - 04/30/2023 11:00 AM CSTAssociated Order(s): OMS MISCELLANEOUS LOCAL PROCEDURE: Excisional biopsy of a left lateral tongue lesion. SURGEON: Rick Mcneill APRN, C.N.P., DelvinN.PPaolo IMAGING ADMINISTRATOR: Dinesh Hernandez C.S.T. ANESTHESIA TYPE: Local. PRE-PROCEDURE INFORMATION Left lateral tongue lesion. POST-PROCEDURE INFORMATION Left lateral tongue lesion. PROCEDURE INFORMATION The patient was brought to operating room 702 and was placed on a surgical table in a semi-reclinedposition. She was prepped and draped in the standard fashion. A procedure pause was performed. The ulcerative lesion was located to the left lateral tongue. Topical anesthetic gel was then applied, and 2% lidocaine with 1:100,000 epinephrine was administered locally around the lesion. Once adequatel y anesthetized, electrocautery was used to make an ellipse around the lesion. The incision was carried to a depth of about 3 mm, and the lesion was excised in its entirety. Cautery was used to provide adequate hemostasis. The soft tissues were then reapproximated using 4-0 chromic gut suture in a horizontal mattress fashion. The specimen was sent for permanent histopathologic analysis. Written and verbal postoperative instructions were provided. The patient was discharged from the procedure room in stable condition, having tolerated the procedure without difficulty. SPECIMENS: Left lateral tongue lesion, post-excisional size approximately 1 cm x 0.8 cm in size. ESTIMATED BLOOD LOSS: Minimal. Rick Mcneill APRN, MaximusN.Keshia, Ruben.N.P. CT CT Job ID: [id number] E STYLIST documented in this encounter Plan of Treatment Not on file documented as of this encounter Procedures Procedure Name Priority Date/Time Associated Diagnosis Comments SURGICAL PATHOLOGY Routine 04/30/2023 11 :33 AM FRAME STYLIST Lesion Tongue OMS MISCELLANEOUS LOCAL Routine 04/30/2023 11:00 AM FRAME STYLIST Lesion Tongue documented in this encounter Results * Surgical Pathology (04/30/2023 11:33 AM FRAME STYLIST) 05/08/2023 1:40 PM FRAME STYLIST DTL Participated in the Interpretation Woody Coffey M.D. -Pathology Resident 05/08/2023 1:40 PM FRAME STYLIST DTL Report electronically signed by Jerrod Pimentel M.D. I verify that I have examined all relevant slides/materi als for the specimen(s) and rendered or confirmed the diagnosis. 05/08/2023 1:40 PM FRAME STYLIST DTL Gross Description A. Received in formalin [...] and submitted entirely in A1. Grossed by [facility]99. 05/08/2023 1:40 PM FRAME STYLIST DTL Interpretation FINAL DIAGNOSIS A. Left, lateral tongue biopsy: ??Ulcerated squamous mucosa with mild epithelial atypia, favor reactive changes. A special stain for GMS is negative for fungal organisms. 05/08/2023 1:40 PM FRAME STYLIST DTL Tissue 04/30/2023 11:3 3 AM FRAME STYLIST 04/30/2023 12:04 PM FRAME STYLIST Rick Mcneill APRN, C.N.P., D.N.P. LAB SURG PATH ORDERABLES [facility] [address] [place] [address], [facility] DTL [address] [place] [address] * OMS Miscellaneous local (04/30/2023 11:00 AM FRAME STYLIST) Narrative Procedure Note Rick Mcneill APRN, C.N.P., Ruben.N.P. - 04/30/2023 11:00 AM CST PROCEDURE: Excisional biopsy of a left lateral tongue lesion. SURGEON: Rick Mcneill APRN, C.N.P., Ruben.N.PPaolo IMAGING ADMINISTRATOR: Dinesh Hernandez C.S.T. ANESTHESIA TYPE: Local. PRE-PROCEDURE [...] APRN, C.N.P., D.N.P. CT CT Job ID: [id number] Anthony Allen M.D., D.D.S. PROCEDURE/M INOR SURGICAL ORDERABLES documented in this encounter Visit Diagnoses Diagnosis Lesion Tongue documented in this encounter Additional Health Concerns Assessment Noted Time PHQ-9 Depression Total Score: 3 03/26/20 23 1:45 PM FRAME STYLIST documented as of this encounter
--- OUTSIDE RECORDS SUMMARY | 2023-07-15 13:00 | XMS_ITS | Clinical Summary ---
Author Name Unknown Organization [facility] Address [place], [place] [address] Care Team Providers Care [employer] Name Role Phone Gurdeep Mcdermott MD Primary Care Provider + Allergies Active Allergy Reactions Criticality Noted Date Comments Smallpox Vaccine,Live Other - Describe I n Comment Field 12/27/2021 Loses skin pigment Medications Medication Sig Dispensed Refills Start Date End Date Status traZODone (DESYREL) 100 mg tablet Take 200 mg by mouth. Active venlafaxine (EFFEXOR XR) 150 mg Extended-Release capsule Take 150 mg by mouth. Active ziprasidone (GEODON) 80 mg capsule Take 80 mg by mouth. Active montelukast (SINGULAIR) 10 mg tablet Take 10 mg by mouth. Active omeprazole (PRILOSEC) 20 mg Delayed-Release capsule Take 20 mg by mouth. Active oxyCODONE-acetaminophen , 5-325 mg, (PERCOCET) 5-325 mg per tabletIndications:Close d fracture of proximal end of left humerus, unspecified fracture morphology, initial encounter Take 1-2 tablets by mouth every 6 hours if needed for Pain Max acetaminophen dose: 4000mg in 24 hrs. 12 tablet 0 Active morphine CONTROLLED RELEASE (MS CONTIN) 60 mg tablet Take 60 mg by mouth 3 times daily Active naproxen sodium (ALEVE) 220 mg cap Take 3 tablets by mouth. Active rx methylPREDNISolone (MEDROL DOSEPAK) 4 mg tablet (ED DC MED)Indications:Acute right-sided low back pain with right-sided sciatica Take 1 tablet by mouth once daily with a meal. 21 tablet 0 Active tamsulosin (FLOMAX) 0.4 mg capsuleIndications:Uret erolithiasis Take 1 Capsule (0.4 mg) by mouth once daily after a meal. Until pass stone 30 Capsule 2 Active ondansetron (ZOFRAN ODT) 4 mg disintegrating tabletIndications:Urete rolithiasis Place 1 Tablet (4 mg) on the tongue every 6 hours if needed for Nausea/Vomiting. 10 Tablet 2 Active traMADoL (ULTRAM) 50 mg tabletIndications:Urete rolithiasis Take 1 Tablet (50 mg) by mouth every 6 hours if needed for Pain. 10 Tablet 2 Active Immunizations Name Administration Dates Next Due Tdap 08/23/2013 Zoster (Zostavax-ZVL, live) 12/12/2015 Family History Medical History Relation Name Comments Cancer Father lip Cancer-breast Maternal Aunt 1 Dx in 40s Cancer-ovarian Maternal Aunt 1 Cancer-ovarian Maternal Aunt 2 Cancer Mother skin Cancer-ovarian Paternal Grandmother Cancer Sister brain Relation Name Status Comments Father Maternal Aunt 1 Maternal Aunt 2 Mother Paternal Grandmother Sister Social History Tobacco Use Types Packs/Day Years Used Date Smoking Tobacco: Never Smokeless Tobacco: Never Alcohol Use Standard Drinks/Week Comments Never 0 (1 standard drink = 0.6 oz pur e alcohol) PHQ-2 Answer Date Recorded PHQ-2 TOTAL SCORE 1 08/30/2019 Social Connections Answer Date Recorded Frequency of Communication with Friends and Fami ly Not on file 04/06/2021 Financial Resource Strain Answer Date R ecorded Difficulty of Paying Living Expenses Not on file 04/06/2021 Difficulty of Paying Living Expenses Not on file 04/06/2021 Sex and Gender Information Value Date Recorded Sex Assigned at Not on file Gender Identity Not on file Sexual Orientation Not on file Obstetrics History Last Filed Vital Signs Vital Sign Reading Time Taken Comments Blood Pressure 133/73 12/27/2021 6:30 AM CDT Pulse 79 12/27/2021 6:30 AM CDT Temperature 36.5 ??C (97.7 ??F) 12/27/2021 5:31 AM CD T Respiratory Rate 18 12/27/2021 5:31 AM CDT Oxygen Saturation 95% 12/27/2021 6:30 AM CDT Inhaled Oxygen Concentration - - Weight 103.2 kg (227 lb 9.6 oz) 12/27/2021 1:24 AM CDT Height 167.2 cm (5' 5.83) 12/27/2021 1:24 AM CD T Body Mass Index 36.93 12/27/2021 1:24 AM CDT Plan of Treatment Health Maintenance Due Date Last Done Comments BMI (ht and wt on same day) for age 18+ 10/23/1973 Hepatitis C screening for age 18-79 10/23/1973 Colonoscopy through age 75 10/23/2000 Lipids for age 45-75 10/23/2000 Zoster (shingles) series for age 50+ (2 of 3) 02/06/20 16 12/12/2015 Mammogram for age 45-75 07/08/2019 07/07/2018 Depression screening for age 12+ 08/29/2020 08/30/19 DEXA/DXA scan for age 65+ 10/23/2020 Pneumococcal series for age 65+ (1 of 1 - PCV) 021 COVID-19 vaccine series () 3 Tetanus booster 08/24/2023 08/23/2013 Influenza for age 65+ 12/06/2023 Tdap Completed 08/23/2013 Procedures Procedure Name Priority Date/Time Associated Diagnosis Comments XR MAMMO GERMAINE BILAT SCREEN Routine 07/07/2018 1:25 PM CDT Encounter for screening mammogram for breast cancer from Last 3 Months or Most Recently Relevant to Health Maintenance Results * XR MAMMO GERMAINE BILAT SCREEN (07/07/2018 1:25 PM CDT) Anatomical Region Laterality Modality BREASTS, Breast Left, Breast Right Bilateral Mammography Impressions 07/07/2018 1:35 PM CDT ??There is no radiographic evidence for malignancy. ??Recommend annual mammograms. A lay language report of this examination will be provided to the patient. MAMMOGRAM ASSESSMENT: ??ACR 1 Negative Narrative 07/07/2018 1:35 PM CDT XR MAMMO GERMAINE BILAT SCREEN [[id number]] CLINICAL HISTORY: ??This is an asymptomatic 62 y.o. patient. INDICATION FOR EXAM: Mammogram Screening. TECHNIQUE: CC & MLO views were obtained. ??This digital study was evaluated with the assistance of Computer-Aided Detection. Breast Tomosynthesis was used in interpretation. COMPARISON FILM: Yes 06/25/17 [facility] 07/31/15 [facility] FINDINGS: ??Mammographically, the breast tissue has scattered fibroglandular densities. ??There are no dominant masses, suspicious micro calcifications or areas of architectural distortion. Dylan Martínez MD MAMMO from Last 3 Months or Most Recently Relevant to Health Maintenance Care Teams [employer] Relationship Specialty Start Date End Date Gurdeep Mcdermott MD [address] [place] [address] PCP - General Family Practice 12/21/19
== END 2023-07-15 12:58 | disposition home or self-care (01) ==
LOC: FBOREF 12:57
PROVIDERS: PCP Family Medicine; Visit Provider Family Medicine
DX: E78.5 Hyperlipidemia, unspecified (principal)
CPT/HCPCS: 80061

== ENCOUNTER 2024-05-20 11:26 | Outpatient (CLI) | payer MEDICARE, SELFPAY | END 2024-05-20 11:27 | disposition home or self-care (01) | PROVIDERS: PCP Family Medicine; Visit Provider Family Medicine | DX: E78.5 Hyperlipidemia, unspecified (principal); I10 Essential (primary) hypertension; E11.9 Type 2 diabetes mellitus without complications | CPT/HCPCS: 80048; 80061; 85025 ==

== ENCOUNTER 2024-08-10 12:16 | Outpatient (CLI) | payer MEDICARE, SELFPAY | END 2024-08-10 12:17 | disposition home or self-care (01) | PROVIDERS: PCP Family Medicine; Visit Provider Family Medicine | DX: I10 Essential (primary) hypertension (principal); R25.2 Cramp and spasm | CPT/HCPCS: 80048; 83735 ==

== ENCOUNTER 2024-11-14 10:39 | Outpatient (CLI) | payer MEDICARE, SELFPAY | END 2024-11-14 10:40 | disposition home or self-care (01) | PROVIDERS: PCP Family Medicine; Visit Provider Family Medicine | DX: R25.2 Cramp and spasm (principal); E11.9 Type 2 diabetes mellitus without complications; J45.30 Mild persistent asthma, uncomplicated | CPT/HCPCS: 80048; 83735 ==